=== PATIENT | male | born 1955 | race Caucasian/White ===

== ENCOUNTER 2017-07-03 09:35 | Emergency (ER) | payer MEDICARE, OTHER ==
[~2017-07-03] VITALS: Ht 177.8 cm; Wt 75.8 kg
[~2017-07-03 09:35] MED LIST: AMBIEN10 MG PO; LACTULOSE10 GM/15 M PO; LANTUS SOL100 UNIT/1 SUB-Q; LANTUS100 UNIT/1 SUB-Q; LISINOPRIL5 MG PO; LYRICA50 MG PO; MARINOL5 MG PO; MS CONTIN30 MG PO; NOVOLOG100 UNIT/1 SQ; OXYCODONE HCL15 MG PO; OXYCODONE HCL5 MG PO; OXYCONTIN15 MG PO; PHENERGAN25 MG RC; PROAIR HFA8.5 GM IH; PROVENTIL HFA6.7 GM INH; TIZANIDINE HCL2 MG PO; ZANAFLEX4 MG PO; ZITHROMAX250 MG PO; ZOFRAN ODT4 MG PO
[2017-07-03] MEDS ORDERED: PREDNISONE20 MG PO (12:14)
[2017-07-03] MEDS ORDERED: ZITHROMAX250 MG PO (12:14)
[2017-07-03] MEDS ORDERED: VENTOLIN HFA18 GM INH (12:17)
--- NOTE | 2017-07-03 17:14 | EKG ---
[facility] [address] [place] [address] Signed Sinus tachycardia Otherwise normal ECG No previous ECGs available Confirmed by DOUGLAS GRISSOM MD ([id number]) on 07/03/2017 5:14:33 PM Electronically Signed By: DOUGLAS GRISSOM MD 07/03/17 1714 PATIENT NAME: ISABELLE ALEMAN Electrocardiogram DATE OF : 55 PHYSICIAN: DOUGLAS GRISSOM MD REPORT #: [id number] REPORT IS CONFIDENTIAL AND NOT TO BE RELEASED WITHOUT AUTHORIZATION
== END 2017-07-03 12:40 | disposition home or self-care (01) ==
LOC: ED 09:35
DX: J45.901 Unspecified asthma with (acute) exacerbation (principal); J20.9 Acute bronchitis, unspecified; E11.9 Type 2 diabetes mellitus without complications; F17.200 Nicotine dependence, unspecified, uncomplicated; Z88.0 Allergy status to penicillin; Z88.1 Allergy status to other antibiotic agents; Z88.6 Allergy status to analgesic agent; Z79.4 Long term (current) use of insulin; Z79.899 Other long term (current) drug therapy
CPT/HCPCS: 71046; 80053; 84484; 85025; 93005; 93010; 94640; 99284; J7512

== ENCOUNTER 2017-07-06 12:24 | Emergency (ER) | payer MEDICARE, OTHER ==
[~2017-07-06] VITALS: Ht 177.8 cm; Wt 75.8 kg
[~2017-07-06 12:24] MED LIST changes: +PREDNISONE20 MG PO; +VENTOLIN HFA18 GM INH
[2017-07-06] MEDS ORDERED: KEFLEX500 MG PO (15:46)
== END 2017-07-06 16:12 | disposition home or self-care (01) ==
LOC: ED 12:24
DX: S90.852A Superficial foreign body, left foot, initial encounter (principal); E11.9 Type 2 diabetes mellitus without complications; Z88.0 Allergy status to penicillin; Z88.1 Allergy status to other antibiotic agents; Z88.6 Allergy status to analgesic agent; Z79.4 Long term (current) use of insulin; Z79.899 Other long term (current) drug therapy; W45.8XXA Other foreign body or object entering through skin, initial encounter
CPT/HCPCS: 99283

== ENCOUNTER 2019-01-10 11:12 | Emergency (ER) | payer MEDICARE, OTHER ==
[~2019-01-10] VITALS: Ht 177.8 cm; Wt 75.8 kg
--- OUTSIDE RECORDS SUMMARY | ~2019-01-10 | XMS | Encounter Summary ---
Demographics + + + | Address | [address] [address] | | | [place] [address] | + + + | Home Phone | | + + + | Preferred Language | Unknown | + + + | Marital Status | | + + + | Holiness Affiliation | 1009 | + + + | Race | Unknown | + + + | Ethnic Group | Unknown | + + + Author + + + | Author | [facility] | | | and [place] | + + + | Organization | [facility] | | | and [place] | + + + | Address | Unknown | + + + | Phone | Unavailable | + + + Support + + + + + | Name | Relationship | Address | Phone | + + + + + | Carmen Capone | ECON | Unknown | | + + + + + | Raulito Del Rosario | ECON | [place] | | | | | [address] | | + + + + + | Oxana Cortez | ECON | Unknown | | + + + + + Care Team Providers + +------+ + | Care Regional Cra Name | Role | Phone | + +------+ + | Tu Hansen MD | PCP | | + +------+ + Reason for Visit + + + | Reason | Comments | + + + | Procedure | | + + + Encounter Details +--------+ + + + + | Date | Type | Department | Care Team | Description | +--------+ + + + + | 11/20/ | Telephone | [facility] | Marco A Gillespie DO | Procedure | | 2019 | | [facility] | [address] | | | | | [address] | [place] [address] | | | | | [place] | [phone] | | | | | [place], [place] | | | | | | [address] | | | | | | [phone] | | | +--------+ + + + + Social History + +-------+ +--------+------+ | Tobacco Use | Types | Packs/Day | Years | Date | | | | | Used | | + +-------+ +--------+------+ | Former Smoker | | | | | + +-------+ +--------+------+ + + | Comments: 2 cigars a day | + + + + + | Sex Assigned at | Date Recorded | | | | + + + | Not on file | | + + + + + + + | Job Start Date | Occupation | Industry | + + + + | Not on file | Not on file | Not on file | + + + + + + + + | Travel History | Travel Start | Travel End | + + + + + + | No recent travel history available. | + + documented as of this encounter Plan of Treatment Not on filedocumented as of this encounter Visit Diagnoses Not on filedocumented in this encounter"
--- OUTSIDE RECORDS SUMMARY | ~2019-01-10 | XMS | Encounter Summary ---
Demographics + + + | Address | [address] [address] | | | [place] [address] | + + + | Home Phone | | + + + | Preferred Language | Unknown | + + + | Marital Status | | + + + | Gnosticist Affiliation | 1009 | + + + | Race | Unknown | + + + | Ethnic Group | Unknown | + + + Author + + + | Author | [facility] [employer] [facility] (Historical as of | | | 11-02-18) | + + + | Organization | [facility] [employer] [facility] (Historical as of | | | 11-02-18) | + + + | Address | Unknown | + + + | Phone | Unavailable | + + + Support + + +---------+ + | Name | Relationship | Address | Phone | + + +---------+ + | Oxana Cortez | ECON | Unknown | | + + +---------+ + Care Team Providers + +------+ + | Care Press Operator [employer] Products Name | Role | Phone | + +------+ + | Tu Hansen MD | PCP | | + +------+ + Reason for Visit + + + | Reason | Comments | + + + | Follow-up | Schedule follow up after 11/01 | + + + Encounter Details +--------+ + + + + | Date | Type | Department | Care Team | Description | +--------+ + + + + | 10/16/ | Telephone | [facility] | Tu Lugo DO | Follow-up (Schedule | | 2019 | | [facility] | [address] | follow up after 11/01 | | | | [address] | [place], [place] | ) | | | | [place], [place] | [id number] | | | | | [address] | | | | | | [phone] | | | +--------+ + + + + Social History + +-------+ +--------+ + | Tobacco Use | Types | Packs/Day | Years | Date | | | | | Used | | + +-------+ +--------+ + | Former Smoker | | | 30 | Quit: 03/19/2007 | + +-------+ +--------+ + + +---+---+---+ | Smokeless Tobacco: | | | | | Former User | | | | + +---+---+---+ + + | Comments: 2 cigars a day | + + + + +---------+ + | Alcohol Use | Drinks/We | oz/Week | Comments | | | ek | | | + + +---------+ + | No | | | | + + +---------+ + + + + | Sex Assigned at | Date Recorded | | | | + + + | Not on file | | + + + as of this encounter Plan of Treatment Not on fileas of this encounter Visit Diagnoses Not on filein this encounter"
--- OUTSIDE RECORDS SUMMARY | ~2019-01-10 | XMS | Encounter Summary ---
Demographics + + + | Address | [address] [address] | | | [place] [address] | + + + | Home Phone | | + + + | Preferred Language | Unknown | + + + | Marital Status | | + + + | Gnosticist Affiliation | 1009 | + + + | Race | Unknown | + + + | Ethnic Group | Unknown | + + + Author + + + | Author | [facility] | | | and [place] | + + + | Organization | [facility] | | | and [...] | Raulito Del Rosario | ECON | [place] | | | | | [address] | | + + + + + | Oxana Cortez | ECON | Unknown | | + + + + + Care Team Providers + +------+ + | Care Control Chemist Name | Role | Phone | + +------+ + | Tu Hansen MD | PCP | | + +------+ + Encounter Details +--------+ + + + + | Date | Type | Department | Care Team | Description | +--------+ + + + + | 10/24/ | Orders Only | [facility] | Conversion | | | 2019 | | CONVERSION [address] | Transaction, | | | | | [address] | Provider Unknown | | | | | [place] | [phone] | | | | | [address] | | | | | | [phone] | | | +--------+ + + + [...]
--- OUTSIDE RECORDS SUMMARY | ~2019-01-10 | XMS | Encounter Summary ---
Demographics + + + | Address | [address] [address] | | | [place] [address] | + + + | Home Phone | | + + + | Preferred Language | Unknown | + + + | Marital Status | | + + + | Sikh Affiliation | 1009 | + + + | Race | Unknown | + + + | Ethnic Group | Unknown | + + + Author + + + | Author | [facility] (Historical as of | | | 11-02-18) | + + + | Organization | [facility] (Historical as of | | | [...] Team Providers + +------+ + | Care Configuration Management Analyst Name | Role | Phone | + +------+ + | Tu Hansen MD | PCP | | + +------+ + Reason for Visit + + + | Reason | Comments | + + + | Neck Pain | | + + + Consultation (Routine) + + + + + + + | Status | Reason | Specialty | Diagnoses / | Referred By | Referred To | | | | | Procedures | Contact | Contact | + + + + + + + | Authorized | Specialty | Pain | Diagnoses | Parish, | Motaghi, | | | Services | Management - | Cervical | DO Tu | DO Marco A | | | Required | Anesthesiolog | radiculopath | [address] | [address] | | | | y / | y | [address] | [address] | | | | Dolorology | Neuroforamin | [address] | [place], [place] | | | | | al stenosis | [place], [place] | [address] | | | | | of cervical | [address] | Phone: | | | | | spine | Phone: | [phone] | | | | | Spinal cord | [phone] | Fax: | | | | | injury at | Fax: | [phone] | | | | | C1-C4 level | [phone] | | | | | | with spinal | | | | | | | cord lesion | | | | | | | ([facility]) | | | | | | | Spinal cord | | | | | | | injury at | | | | | | | C5-C7 level | | | | | | | without | | | | | | | injury of | | | | | | | spinal bone, | | | | | | | initial | | | | | | | encounter | | | | | | | ([facility]) | | | | | | | Disability | | | | | | | of walking | | | | | | | Myelomalacia | | | | | | | of cervical | | | | | | | cord ([facility]) | | | + + + + + + + Encounter Details +--------+---------+ + + + | Date | Type | Department | Care Team | Description | +--------+---------+ + + + | 11/01/ | Office | [facility] | Marco A Gillespie DO | Spinal cord injury | | 2019 | Visit | [facility] | [address] | at C1-C4 level with | | | | MEDICINE LIZZY | [place] [address] | spinal cord lesion | | | | PAIN [address] | [phone] | (HCC) prior | | | | [place], [place] | | (Primary Dx); Spinal | | | | [address] | | cord injury at | | | | [phone] | | C5-C7 level without | | | | | | injury of spinal | | | | | | bone, initial | | | | | | encounter ([facility]); | | | | | | Cervical | | | | | | radiculopathy; Left | | | | | | arm weakness; | | | | | | History of fusion of | | | | | | cervical spine; | | | | | | Neuroforaminal | | | | | | stenosis of cervical | | | | | | spine | +--------+---------+ + + + Social History + +-------+ [...] + + + as of this encounter Last Filed Vital Signs + + + + | Vital Sign | Reading | Time Taken | + + + + | Blood Pressure | - | - | + + + + | Pulse | - | - | + + + + | Temperature | - | - | + + + + | Respiratory Rate | - | - | + + + + | Oxygen Saturation | - | - | + + + + | Inhaled Oxygen | - | - | | Concentration | | | + + + + | Weight | 75.6 kg (166 lb 9.6 | 11/01/2018 11:00 AM PDT | | | oz) | | + + + + | Height | 180.3 cm (5' 11") | 11/01/2018 11:00 AM PDT | + + + + | Body Mass Index | 23.24 | 11/01/2018 11:00 AM PDT | + + + + in this encounter Progress Notes Marco A Gillespie DO - 11/01/2018 11:55 AM PDTFormatting of this note may be different from t meagan original. [facility]: Interventional Pain Management 11/01/2018 Jim Salas 1955 Chief Complaint Patient presents with Neck Pain HISTORY OF PRESENT ILLNESS Neck Pain This is a chronic problem. The current episode started more than 1 year ago. The problem oc curs constantly. The problem has been unchanged. The pain is present in the left side. The q uality of the pain is described as aching, stabbing and shooting. The pain is at a severity of 7/10. The pain is moderate. Associated symptoms include numbness, tingling and weakness. Pertinent negatives include no chest pain, fever, headaches, photophobia or trouble swallowi ng. The treatment provided mild relief. REVIEW OF SYSTEMS Review of Systems Constitutional: Positive for activity change. Negative for appetite change, fatigue and fev er. HENT: Negative for congestion, trouble swallowing and voice change. Eyes: Negative for photophobia, discharge and visual disturbance. Respiratory: Negative for apnea, cough, shortness of breath and wheezing. Cardiovascular: Negative for chest pain, palpitations and leg swelling. Gastrointestinal: Negative for abdominal pain, diarrhea, nausea and vomiting. Endocrine: Negative for cold intolerance, heat intolerance and polyuria. Musculoskeletal: Positive for arthralgias, back pain and neck pain. Negative for gait probl em, joint swelling and neck stiffness. Skin: Negative for color change and rash. Allergic/Immunologic: Negative for environmental allergies and food allergies. Neurological: Positive for tingling, weakness and numbness. Negative for dizziness, seizure s, light-headedness and headaches. Psychiatric/Behavioral: Negative for dysphoric mood and suicidal ideas. The patient is not nervous/anxious. All other systems reviewed and are negative. Past Medical History Diagnosis Date Adverse drug reaction 08/26/2011 Anxiety Cancer (HCC) Stage 4 Liver CA from Hepatitis- finished chemo about 3 wks ago Chronic back pain Diabetes mellitus type II Falls frequently GERD (gastroesophageal reflux disease) Hepatitis C Joint pain chemo related Liver disease Neuromuscular disorder (HCC) Other chronic pain back and legs Peripheral neuropathy Past Surgical History Procedure Laterality Date CERVICAL LAMINECTOMY Bilateral 08/01/2012 Procedure: CERVICAL - DECOMPRESSION - LAMINECTOMY - POSTERIOR; Surgeon: Arnaldo Jiang MD; Location: [facility]; Service: Neurosurgery; Laterality: Bilateral; 3,4,5 w/ lateral plates (cervical 3-7 decompression and fusion with lateral mass plates) COLONOSCOPY EYE SURGERY EYE SURGERY right eye after trauma HAND SURGERY Carpal Tunnel- RH LUMBAR SPINE SURGERY lumbarectomy x3 SPINE SURGERY Allergies Allergen Reactions Codeine Anaphylaxis Erythrocin Hives Erythromycin Anaphylaxis Robaxin [Methocarbamol] Shortness of Breath Neurontin [Gabapentin] Headache migraine Prior to Admission medications Medication Sig Start Date End Date Taking? Authorizing Provider albuterol (PROVENTIL HFA;VENTOLIN HFA) 108 (90 Base) MCG/ACT inhaler INHALE 2 PUFFS PO Q 6 H PRN 07/31/18 Yes Historical Provider clobetasol (TEMOVATE) 0.05 % cream Apply 0.05 % topically 2 (two) times daily. Apply twice a day to the affected area Yes Historical Provider diclofenac (VOLTAREN) 1 % APPLY 2 GRAMS TO SKIN SPARINGLY TO POSTERIOR NECK 3 XD PRF MODERA TE PAIN 08/02/18 Yes Historical Provider hydrOXYzine (VISTARIL) 50 MG capsule Take 50 mg by mouth 3 (three) times daily as needed. Yes Historical Provider insulin aspart (NOVOLOG) 100 UNIT/ML injection Follow the sliding scale insulin regimen as instructed. 08/28/11 Yes Franky Cabrera MD insulin glargine (LANTUS) 100 UNIT/ML injection Inject 15 Units into the skin nightly. 08/27 Yes Franky Cabrera MD losartan (COZAAR) 25 MG tablet TK 1 T PO QD 10/09/18 Yes Historical Provider LYRICA 100 MG capsule TK 1 C PO 3 XD 07/25/18 Yes Historical Provider omeprazole (PRILOSEC) 40 MG capsule Take 40 mg by mouth daily. Yes Historical Provider ondansetron (ZOFRAN) 4 MG tablet TK 1 T PO BID PRN NAUSEA 07/22/18 Yes Historical Provider ondansetron (ZOFRAN-ODT) [address] 1 T ON TONGUE AND ALLOW TO DISSOL VE BID 10/09/18 Yes Historical Provider oxyCODONE (ROXICODONE) 15 MG immediate release tablet 2 times daily 07/31/18 Yes Historical Provider pregabalin (LYRICA) 25 MG capsule Take 100 mg by mouth 3 (three) times daily. Yes Histori david Provider SSD 1 % cream APPLY CREAM TOPICALLY BID 08/27/18 Yes Historical Provider tiZANidine (ZANAFLEX) 4 MG tablet TK 1 T PO 4 XD 08/22/18 Yes Historical Provider Family History Problem Relation Age of Onset Diabetes type II Father Heart attack Father Stroke Mother Diabetes Other Social History Social History Marital status: Spouse name: N/A Number of children: 5 Years of education: N/A Occupational History Not on file. Social History Main Topics Smoking status: Former Smoker Years: 30.00 Quit date: 03/19/2007 Smokeless tobacco: Former User Comment: 2 cigars a day Alcohol use No Drug use: Yes Types: Marijuana Comment: occasional cookie Sexual activity: Not on file Other Topics Concern Not on file Social History Narrative Resident of [facility], lives at home . PHYSICAL EXAM Vital Signs: Ht 1.803 m (5' 11") | Wt 75.6 kg (166 lb 9.6 oz) | BMI 23.24 kg/m Physical Exam Constitutional: He is oriented to person, place, and time. He appears well-developed and we ll-nourished. HENT: Head: Normocephalic and atraumatic. Eyes: Conjunctivae are normal. Neck: No tracheal deviation present. Cardiovascular: Normal rate and regular rhythm. Pulmonary/Chest: Effort normal. Abdomina/Gl: Soft. Bowel sounds are normal. Neurological: He is alert and oriented to person, place, and time. Skin: Skin is warm and dry. Psychiatric: He has a normal mood and affect. His behavior is normal. Judgment normal. Vitals reviewed. Back Exam Tenderness The patient is experiencing tenderness in the cervical. Other Gait: antalgic DATA No results found. PROBLEM LIST 1. Spinal cord injury at C1-C4 level with spinal cord lesion (HCC) prior 2. Spinal cord injury at C5-C7 level without injury of spinal bone, initial encounter ([facility]) 3. Cervical radiculopathy 4. Left arm weakness 5. History of fusion of cervical spine 6. Neuroforaminal stenosis of cervical spine ASSESSMENT & PLAN Mr. Salas is a 63-year-old man here complaining of cervical neck pain with radicular symp toms on the left seemed to be following the C7-C8 nerve root on the left due to foraminal na rrowing as well as what looks like a possible tear in the root. At this time, we will try t o do a one time epidural steroid injection at C7-T1 where his dysfunction is and then having him follow up in the office for reevaluation. He does agree with the plan. Denies any los s of bowel or bladder function. We do look forward to continue participating in his care. Plan, alternatives, risks and potential benefits of the procedure were explained to the pat ient in great detail. The patient understands that there is no guarantee they will get pain relief with this procedure. They also understand that if they do get pain relief that ther e is no way to know how long it will last. They also understand there is a risk to the proc edure itself which includes but are not limited to infection, abscess, hematoma, nerve damag e, paraplegia or quadriplegia, increased pain, spinal headache, stroke, and side effects fro m the medications themselves. The patient wishes to proceed. Patient is currently participating in home exercises. Primary Care Physician: Tu Hansen follow up Marco A Gillespie DO 11/01/2018 This document has been prepared with [employer] voice recognition system. The possibility of "s ound alike" manager lighting errors, and additions, or deletions may occur. If there is any que stion with respect to clarity of the message being conveyed, please contact me directly for clarification.in this encounter Plan of Treatment Not on fileas of this encounter Visit Diagnoses + + | Diagnosis | + + | Spinal cord injury at C1-C4 level with spinal cord lesion (HCC) prior - Primary | + + | Spinal cord injury at C5-C7 level without injury of spinal bone, initial encounter | | (HCC) | + + | Cervical radiculopathy | + + | Brachial neuritis or radiculitis nos | + + | Left arm weakness | + + | Other musculoskeletal symptoms referable to limbs | + + | History of fusion of cervical spine | + + | Arthrodesis status | + + | Neuroforaminal stenosis of cervical spine | + +
--- OUTSIDE RECORDS SUMMARY | ~2019-01-10 | XMS | Encounter Summary ---
Demographics + + + | Address | [address] [address] | | | [place] [address] | + + + | Home Phone | | + + + | Preferred Language | Unknown | + + + | Marital Status | | + + + | Catholic Affiliation | 1009 | + + + | Race | Unknown | + + + | Ethnic Group | Unknown | + + + Author + + + | Author | [facility] | | | and [place] | + + + | Organization | [facility] | | | and [...] [place] | | | | | [address] | | + + + + + | Oxana Cortez | ECON | Unknown | | + + + + + Care Team Providers + +------+ + | Care Puller Over Name | Role | Phone | + [...] Provider Unknown | | | | | [place] | [phone] | | | | | [phone] | | | | | | [phone] | | | +--------+ + + + [...]
--- OUTSIDE RECORDS SUMMARY | ~2019-01-10 | XMS | Encounter Summary ---
Demographics + + + | Address | [address] [address] | | | [place] [address] | + + + | Home Phone | | + + + | Preferred Language | Unknown | + + + | Marital Status | | + + + | Bahai Affiliation | 1009 | + + + | Race | Unknown | + + + | Ethnic Group | Unknown | + + + Author + + + | Author | [facility] [employer] (Historical as of | | | 11-02-18) | + + + | Organization | [facility] [employer] (Historical as of | | [...] Team Providers + +------+ + | Care Desulphuring Operator Name | Role | Phone | + [...] + | 10/16/ | Telephone | [facility] | Tu Lugo DO | Follow-up (Schedule | | 2019 | | [facility] | [address] | follow up after 11/01 | | | | [address] | [place], [place] | ) | | | | [place], [place] | [id number] | | | | | [address] | | | | | | [phone] | | | +--------+ + + + [...]
--- OUTSIDE RECORDS SUMMARY | ~2019-01-10 | XMS | Clinical Summary ---
Demographics + + + | Address | [address] [address] | | | [place] [address] | + + + | Home Phone | | + + + | Preferred Language | Unknown | + + + | Marital Status | | + + + | Voodoo Affiliation | 1009 | + + + | Race | Unknown | + + + | Ethnic Group | Unknown | + + + Author + + + | Author | [facility] (Historical as of | | | 11-02-18) | + + + | Organization | [facility] (Historical as of | | | [...] Team Providers + +------+ + | Care Glass Forming Engineer Name | Role | Phone | + +------+ + | Tu Hansen MD | PP | | + +------+ + Allergies + + + + + + | Active Allergy | Reactions | Severity | Noted | Comments | | | | | Date | | + + + + + + | Codeine | Anaphylaxis | High | 08/27/19 | | | | | | 12 | | + + + + + + | Erythrocin | Hives | High | 09/10/19 | | | | | | 11 | | + + + + + + | Erythromycin | Anaphylaxis | High | 09/04/19 | | | | | | 19 | | + + + + + + | Gabapentin | Headache | Medium | 06/20/19 | migraine | | | | | 12 | | + + + + + + | Methocarbamol | Shortness of Breath | High | 09/10/19 | | | | | | 11 | | + + + + + + Current Medications + + +---------+---------+------+------+-------+ | Prescription | Sig. | Disp. | Refills | Star | End | Statu | | | | | | t | Date | s | | | | | | Date | | | + + +---------+---------+------+------+-------+ | pregabalin | Take 100 mg by mouth | | | | | Activ | | (LYRICA) 25 MG | 3 (three) times | | | | | e | | capsule | daily. | | | | | | + + +---------+---------+------+------+-------+ | insulin glargine | Inject 15 Units into | 10 mL | 1 | 06/1 | | Activ | | (LANTUS) 100 UNIT/ML | the skin nightly. | | | /20 | | e | | injection | | | | 12 | | | + + +---------+---------+------+------+-------+ | insulin aspart | Follow the sliding | 10 mL | 0 | 06/1 | | Activ | | (NOVOLOG) 100 | scale insulin | | | 1/20 | | e | | UNIT/ML injection | regimen as | | | 12 | | | | | instructed. | | | | | | + + +---------+---------+------+------+-------+ | hydrOXYzine | Take 50 mg by mouth | | | | | Activ | | (VISTARIL) 50 MG | 3 (three) times | | | | | e | | capsule | daily as needed. | | | | | | + + +---------+---------+------+------+-------+ | omeprazole | Take 40 mg by mouth | | | | | Activ | | (PRILOSEC) 40 MG | daily. | | | | | e | | capsule | | | | | | | + + +---------+---------+------+------+-------+ | clobetasol | Apply 0.05 % | | | | | Activ | | (TEMOVATE) 0.05 % | topically 2 (two) | | | | | e | | cream | times daily. Apply | | | | | | | | twice a day to the | | | | | | | | affected area | | | | | | + + +---------+---------+------+------+-------+ | albuterol | INHALE 2 PUFFS PO Q | | 3 | 05/1 | | Activ | | (PROVENTIL | 6 H PRN | | | 08/05 | | e | | HFA;VENTOLIN HFA) | | | | 19 | | | | 108 (90 Base) | | | | | | | | MCG/ACT inhaler | | | | | | | + + +---------+---------+------+------+-------+ | diclofenac | APPLY 2 GRAMS TO | | 1 | 05/1 | | Activ | | (VOLTAREN) 1 % | SKIN SPARINGLY TO | | | 20 | | e | | | POSTERIOR NECK 3 XD | | | 19 | | | | | PRF MODERATE PAIN | | | | | | + + +---------+---------+------+------+-------+ | ondansetron | TK 1 T PO BID PRN | | 0 | 05/0 | | Activ | | (ZOFRAN) 4 MG tablet | NAUSEA | | | 20 | | e | | | | | | 19 | | | + + +---------+---------+------+------+-------+ | oxyCODONE | 2 times daily | | 0 | 05/1 | | Activ | | (ROXICODONE) 15 MG | | | | 5/20 | | e | | immediate release | | | | 19 | | | | tablet | | | | | | | + + +---------+---------+------+------+-------+ | LYRICA 100 MG | TK 1 C PO 3 XD | | 0 | 05/0 | | Activ | | capsule | | | | 20 | | e | | | | | | 19 | | | + + +---------+---------+------+------+-------+ | SSD 1 % cream | APPLY CREAM | | 2 | 06/1 | | Activ | | | TOPICALLY BID | | | /20 | | e | | | | | | 19 | | | + + +---------+---------+------+------+-------+ | tiZANidine | TK 1 T PO 4 XD | | 1 | 06/0 | | Activ | | (ZANAFLEX) 4 MG | | | | 6/20 | | e | | tablet | | | | 19 | | | + + +---------+---------+------+------+-------+ | losartan (COZAAR) | TK 1 T PO QD | | 5 | 07/2 | | Activ | | 25 MG tablet | | | | 4/20 | | e | | | | | | 19 | | | + + +---------+---------+------+------+-------+ | ondansetron | PLACE 1 T ON TONGUE | | 5 | 07/2 | | Activ | | (ZOFRAN-ODT) 8 MG | AND ALLOW TO | | | 4/20 | | e | | disintegrating | DISSOLVE BID | | | 19 | | | | tablet | | | | | | | + + +---------+---------+------+------+-------+ Active Problems + + + | Problem | Noted Date | + + + | Spinal cord injury at C1-C4 level with spinal cord lesion ([facility]) | 10/02/2018 | | prior | | + + + | Spinal cord injury at C5-C7 level without injury of spinal bone | 10/02/2018 | | ([facility]) | | + + + | Disability of walking | 10/02/2018 | + + + | Myelomalacia of cervical cord ([facility]) | 10/02/2018 | + + + | Degeneration of intervertebral disc of cervical region | 09/03/2018 | + + + | Cervical radiculopathy | 09/03/2018 | + + + | Left arm weakness | 09/03/2018 | + + + | History of fusion of cervical spine | 09/03/2018 | + + + | Neuroforaminal stenosis of cervical spine | 09/03/2018 | + + + | Allergic drug rash due to anti-infective agent | 08/26/2011 | + + + | Acute pain | 08/26/2011 | + + + | Diabetes mellitus (HCC) | 08/26/2011 | + + + | Chronic hepatitis, unspecified | 08/26/2011 | + + + | Abnormal LFTs (liver function tests) | 08/26/2011 | + + + | Elevated blood pressure reading without diagnosis of hypertension | 08/26/2011 | + + + | GERD (gastroesophageal reflux disease) | 08/26/2011 | + + + | Hyperosmolality and/or hypernatremia | 08/26/2011 | + + + | Peripheral neuropathy | 08/26/2011 | + + + | Chronic LBP | 08/26/2011 | + + + | Falls | 08/26/2011 | + + + | Arboleda's esophagus | 08/26/2011 | + + + | Hepatitis C, chronic | 08/26/2011 | + + + | Adverse drug reaction | 08/26/2011 | + + + Encounters +--------+ + + + + | Date | Type | Specialty | Care Team | Description | +--------+ + + + + | 11/01/ | Office | | Marco A Gillespie DO | Spinal cord injury | | 2019 | Visit | | | at C1-C4 level with | | | | | | spinal cord lesion | | | | | | (HCC) prior | | | | | | (Primary Dx); Spinal | | | | | | cord injury at | | | | | | C5-C7 level without | | | | | | injury of spinal | | | | | | bone, initial | | | | | | encounter (HCC); | | | | | | Cervical [...] | | | | | spine | +--------+ + + + + | 10/24/ | Orders Only | | Kenia Ann, | | | 2018 | | | REPAIR DEPARTMENT SUPERVISOR | | +--------+ + + + + | 10/16/ | Telephone | | Tu Lugo DO | Referral (outgoing) | | 2018 | | | | | +--------+ + + + + | 10/16/ | Telephone | | Tu Lugo DO | Follow-up (Schedule | | 2018 | | | | follow up after 11/01 | | | | | | ) | +--------+ + + + + from Last 3 Months Family History + + +------+ + | Medical History | Relation | Name | Comments | + + +------+ + | Diabetes type II | Father | | | + + +------+ + | Heart attack | Father | | | + + +------+ + | Stroke | Mother | | | + + +------+ + | Diabetes | Other | | | + + +------+ + + +------+ + + | Relation | Name | Status | Comments | + +------+ + + | Father | | | at the age 64 with heart attack | + +------+ + + | Mother | | | at the age of 34 from complications of | | | | | polio | + +------+ + + | Other | | | | + +------+ + + Social History + +-------+ +--------+ [...] on file | | + + + Last Filed Vital Signs + + + + | Vital Sign | Reading | Time Taken | + + + + | Blood Pressure | 144/73 | 10/02/2018 11:20 AM PDT | + + + + | Pulse | 62 | 10/02/2018 11:20 AM PDT | + + + + | Temperature | 36.5 C (97.7 F) | 08/02/2012 11:37 AM PDT | + + + + | Respiratory Rate | 16 | 08/02/2012 11:37 AM PDT | + + + + | Oxygen Saturation | 98% | 08/02/2012 11:37 AM PDT | + + + + | Inhaled [...] AM PDT | + + + + Plan of Treatment + + + + + | Health Maintenance | Due Date | Last Done | Comments | + + + + + | Diabetic Eye Exam | | | | | | 6 | | | + + + + + | Diabetic Foot Exam | | | | | | 6 | | | + + + + + | Microalbumin | | | | | Screening | 6 | | | + + + + + | Vaccine: | | | | | Dtap/Tdap/Td (1 - | 5 | | | | Tdap) | | | | + + + + + | Vaccine: | | | | | Pneumococcal 19-64 | 5 | | | | (PPSV23 only) Medium | | | | | Risk (1 of 1 - | | | | | PPSV23) | | | | + + + + + | Colon Cancer | | | | | Screening | 6 | | | | (Colonoscopy) | | | | + + + + + | Vaccine: Zoster (1 | | | | | of 2) | 6 | | | + + + + + | Hemoglobin A1c | | 08/27/2011 | | | | 2 | | | + + + + + | Statin Therapy | | | | | (optimal intensity) | 9 | | | + + + + + | Vaccine: Influenza | | | | | (#1) | 9 | | | + + + + + Implants + +------+------+ +--------+--------+--------+ | Implanted | Type | Area | Manufacture | Device | Expira | Model | | | | | r | | tion | / | | | | | | Identi | Date | Serial | | | | | | fier | | / Lot | + +------+------+ +--------+--------+--------+ | Allograft Putty Freeze Dried | | | | | 04/15/ | [id number] | | Demineralized Bone Matrix Dbx | | | | | 2014 | | | 5ml - | | | | | | /[id number] | | [id number]: | | | | | | [id number] | | Qty: 1 on 08/01/2012 by | | | | | | [id number] | | Arnaldo Jiang MD | | | | | | 1 / | + +------+------+ +--------+--------+--------+ | Screw Synapse Cancellous Ti | | | | | | 04.614 | | 3.5x14mm - | | | | | | .014 | | [id number]: Qty: 8 on | | | | | | /[id number] | | 08/01/2012 by Arnaldo Jiang, | | | | | | 014 / | | | | | | | | | + +------+------+ +--------+--------+--------+ | Screw Synapse Locking For Loco | | | | | | 04.614 | | Spinal Hard Ti 355mm - | | | | | | .508 | | [id number]: Qty: 8 on | | | | | | /[id number] | | 08/01/2012 by Arnaldo Jiang, | | | | | | 508 / | | MD | | | | | | | + +------+------+ +--------+--------+--------+ | Loco Hard Ti 3.5x80mm - | | | | | | 498.12 | | [id number]: Qty: 2 on | | | | | | 0 | | 08/01/2012 by Arnaldo Jiang, | | | | | | /[id number] | | MD | | | | | | 0 / | + +------+------+ +--------+--------+--------+ Results Not on filefrom Last 3 Months Insurance + +--------+ +------+-------+ + | Payer | Benefi | Subscriber | Type | Phone | Address | | | t Plan | ID | | | | | | / | | | | | | | Group | | | | | + +--------+ +------+-------+ + | MEDICARE | MEDICA | [id number] | | | [address] | | | RE | | | | [place] [address] | | | IP-OP | | | | | + +--------+ +------+-------+ + | MEDICAID | [place] | [id number] | | | [address] | | | N | | | | [place], [place] | | | [place] | | | | [address] | | | PRODUCT GRADER | | | | | + +--------+ +------+-------+ + + +--------+ +--------+ + + | Guarantor Name | Accoun | Relation to | Date | Phone | Billing Address | | | t Type | Patient | of | | | | | | | | | | + +--------+ +--------+ + + | JIM SALAS | Person | Self | [birth year] | Home: | [address] [place] [address] | | [place] | al/Romeo | | 6 [phone] [address] [place], | | | carmen | | | [phone] | [place] [address] | + +--------+ +--------+ + +
--- OUTSIDE RECORDS SUMMARY | ~2019-01-10 | XMS | Encounter Summary ---
Demographics + + + | Address | [address] [address] | | | [place] [address] | + + + | Home Phone | | + + + | Preferred Language | Unknown | + + + | Marital Status | | + + + | Episcopalian Affiliation | 1009 | + + + | Race | Unknown | + + + | Ethnic Group | Unknown | + + + Author + + + | Author | [facility] (Historical as of | | | 11-02-18) | + + + | Organization | [facility] (Historical as of | | [...] Team Providers + +------+ + | Care Applied Psychology Teacher Name | Role | Phone | + [...] Dolorology | Neuroforamin | KETAN B | [place], [place] | | | | | al stenosis | [place], [place] | [address] | | | | | of cervical | [address] | Phone: | | | | | spine | Phone: | [phone] | | | | | Spinal cord | [phone] | Fax: | | | | | injury at | Fax: | [phone] | | | | | C1-C4 level | [phone] | | | | | | with spinal | | | | | | | cord lesion | | | | | | | ([facility]) | | | | | | | [...] | | | | | | | ([facility]) | | | | | | | Disability | | | | | | | of walking | | | | | | | Myelomalacia | | | | | | | of cervical | | | | | | | cord ([facility]) | | | + + + + + + + Encounter Details +--------+---------+ + + + | Date | Type | Department | Care Team | Description | +--------+---------+ + + + | 11/01/ | Office | [facility] | Marco A Gillespie DO | Spinal cord injury | | 2019 | Visit | [facility] | [address] | at C1-C4 level with | | | | MEDICINE [place]ZZ[place] | [place] [address] | spinal cord lesion | | | | PAIN [address] | [phone] | (HCC) prior | | | | [place], [place] | | (Primary Dx); Spinal | | | | [address] | | cord injury at | | | | [phone] | | C5-C7 level without | | | | | | injury of spinal | | | | | | bone, initial | | | | | | encounter ([facility]); | | | | | | Cervical [...] may be different from t meagan original. 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 PHYSICAL EXAM Vital [...] without injury of spinal bone, initial encounter ([facility]) 3. Cervical radiculopathy 4. Left arm weakness [...] 11/01/2018 This document has been prepared with Jogg voice recognition system. The possibility of "s ound alike" wig comber errors, and additions, or deletions may occur. [...]
--- OUTSIDE RECORDS SUMMARY | ~2019-01-10 | XMS | Encounter Summary ---
Demographics + + + | Address | [address] [address] | | | [place] [address] | + + + | Home Phone | | + + + | Preferred Language | Unknown | + + + | Marital Status | | + + + | Restoration Affiliation | 1009 | + + + | Race | Unknown | + + + | Ethnic Group | Unknown | + + + Author + + + | Author | [facility] | | | and [place] | + + + | Organization | [facility] | | | [...] [place] | | | | | [address] | | + + + + + | Oxana Cortez | ECON | Unknown | | + + + + + Care Team Providers + +------+ + | Care Monotype Machinist Name | Role | Phone | + [...] | Procedure | | 2019 | | [facility] | [address] [facility] | | | | | [address] | [place] [address] | | | | | [address] | [phone] | | | | | [place], [place] | | | | | | [address] | | | | | | [phone] | | | +--------+ + + + [...]
--- OUTSIDE RECORDS SUMMARY | ~2019-01-10 | XMS | Clinical Summary ---
Demographics + + + | Address | [address] [address] | | | [place] [address] | + + + | Home Phone | | + + + | Preferred Language | Unknown | + + + | Marital Status | | + + + | Orthodox Affiliation | 1009 | + + + | Race | Unknown | + + + | Ethnic Group | Unknown | + + + Author + + + | Author | [facility] | | | and [place] | + + + | Organization | [facility] | | | [...] [place] | | | | | [address] | | + + + + + | Oxana Cortez | ECON | Unknown | | + + + + + Care Team Providers + +------+ + | Care Guitar Teacher Name | Role | Phone | + +------+ + | Tu Hansen MD | PCP | | + +------+ + Allergies + [...] | Hives | High | 09/10/19 | Hives | | | | | 11 | [...] + + + | Methocarbamol | Shortness Of Breath | High | 09/10/19 | Sob | | | | | 11 | | + + + + + + Medications + + + +---------+------+------+-------+ | Medication | Sig | Dispensed | Refills | Star | End | Statu | | | | | | t | Date | s | | | | | | Date | | | + + + +---------+------+------+-------+ | pregabalin | Take 100 mg by mouth | | 0 | 06/0 | | Activ | | (LYRICA) 25 mg | 3 (three) times | | | /20 | | e | | capsule | daily. | | | 12 | | | + + + +---------+------+------+-------+ | insulin glargine | Inject 15 Units into | 10 mL | 1 | 06/1 | | Activ | | (LANTUS) 100 | the skin nightly. | | | 1/20 | | e | | units/mL injection | | | | 12 | | | | (vial) | | | | | | | + + + +---------+------+------+-------+ | insulin aspart | Follow the sliding | 10 mL | 0 | 06/1 | | Activ | | (NOVOLOG) 100 | scale insulin | | | 1/20 | | e | | units/mL injection | regimen as | | | 12 | | | | | instructed. | | | | | | + + + +---------+------+------+-------+ | hydrOXYzine | Take 50 mg by mouth | | 0 | 07/1 | | Activ | | (VISTARIL) 50 MG | 3 (three) times | | | 9/20 | | e | | capsule | daily as needed. | | | 12 | | | + + + +---------+------+------+-------+ | omeprazole | Take 40 mg by mouth | | 0 | 07/1 | | Activ | | (PRILOSEC) 40 MG | daily. | | | 12/06 | | e | | capsule | | | | 12 | | | + + + +---------+------+------+-------+ | clobetasol | Apply 0.05 % | | 0 | / | | Activ | | (TEMOVATE) 0.05% | topically 2 (two) | | | 12/06 | | e | | cream | times daily. Apply | | | 12 | | | | | twice a day to the | | | | | | | | affected area | | | | | | + + + +---------+------+------+-------+ | albuterol 90 | INHALE 2 PUFFS PO Q | | 3 | 07/17 | | Activ | | mcg/puff inhaler | 6 H PRN | | | /20 | | e | | | | | | 19 | | | + + + +---------+------+------+-------+ | diclofenac | APPLY 2 GRAMS TO | | 1 | 05/1 | | Activ | | (VOLTAREN) 1% GEL | SKIN SPARINGLY TO | | | /20 | | e | | | POSTERIOR NECK 3 XD | | | 19 | | | | | PRF MODERATE PAIN | | | | | | + + + +---------+------+------+-------+ | ondansetron | TK 1 T PO BID PRN | | 0 | 05/0 | | Activ | | (ZOFRAN) 4 mg tablet | NAUSEA | | | /20 | | e | | | | | | 19 | | | + + + +---------+------+------+-------+ | oxyCODONE | 2 times daily | | 0 | 05/1 | | Activ | | (ROXICODONE) 15 mg | | | | /20 | | e | | immediate release | | | | 19 | | | | tablet | | | | | | | + + + +---------+------+------+-------+ | LYRICA 100 MG | TK 1 C PO 3 XD | | 0 | 05/0 | | Activ | | capsule | | | | /20 | | e | | | | | | 19 | | | + + + +---------+------+------+-------+ | SSD 1 % cream | APPLY CREAM | | 2 | 06/1 | | Activ | | | TOPICALLY BID | | | 1/20 | | e | | | | | | 19 | | | + + + +---------+------+------+-------+ | tiZANidine | TK 1 T PO 4 XD | | 1 | 06/0 | | Activ | | (ZANAFLEX) 4 mg | | | | 6/20 | | e | | tablet | | | | 19 | | | + + + +---------+------+------+-------+ | losartan (COZAAR) | TK 1 T PO QD | | 5 | 07/2 | | Activ | | 25 mg tablet | | | | 4/20 | | e | | | | | | 19 | | | + + + +---------+------+------+-------+ | ondansetron | PLACE 1 T ON TONGUE | | 5 | 07/2 | | Activ | | (ZOFRAN ODT) 8 mg | AND ALLOW TO | | | 4/20 | | e | | disintegrating | DISSOLVE BID | | | 19 | | | | tablet | | | | | | | + + + +---------+------+------+-------+ Active Problems + + + | Problem | Noted Date | + + + | Spinal cord injury at C1-C4 level with spinal cord lesion (HCC) | 10/02/2018 | | prior | | + + + | Spinal cord injury at C5-C7 level without injury of spinal bone | 10/02/2018 | + + + | Disability of walking | 10/02/2018 | + + + | Myelomalacia of cervical cord | 10/02/2018 | + + + | [...] | + + + | Diabetes mellitus | 08/26/2011 | + + + | [...] + + | 11/20/ | Telephone | Pain Medicine | Marco A Gillespie DO | Procedure | | 2018 | | | | | +--------+ + + + + | 10/24/ | Orders Only | | Conversion | | | 2018 | | | Transaction, | | | | | | Provider Unknown | | +--------+ + + + + from Last 3 Months Family History + + +------+ + | Medical History | Relation | Name | Comments | + + +------+ + | Diabetes, NIDDM | Father | | | + + [...] attack | + +------+ + + | Father | | | | + +------+ + + | Mother | | | at the age of 34 from complications of | | | | | polio | + +------+ + + | Mother | | | | + +------+ + + | Other | | | | + +------+ + + | Other | | | | + +------+ + + Social History + +-------+ +--------+------+ [...] recent travel history available. | + + Last Filed Vital Signs + + + + | Vital Sign | Reading | Time Taken | + + + + | Blood Pressure | 144/73 | 10/02/20181126 PDT | + + + + | Pulse | 62 | 10/02/20181126 PDT | + + + + | [...] | 75.6 kg (166 lb 9.6 | 11/01/20181102 PDT | | | oz) | | + + + + | Height | 180.3 cm (5' 11") | 11/01/20181102 PDT | + + + + | Body Mass Index | 23.24 | 11/01/20181102 PDT | + + + + Plan of Treatment + + + + + | Health Maintenance | Due Date | Last Done | Comments | + + + + + | Diabetic Eye Exam | | | | | | 4 | | | + + + + + | Diabetic Foot Exam | | | | | | 4 | | | + + + + + | Hemoglobin A1c | | | | | Screening | 4 | | | + + + + + | Vaccine: | | | | | Dtap/Tdap/Td (1 - | 5 | | | | Tdap) | | | | + + + + + | Vaccine: | | | | | Pneumococcal 19-64 | 5 | | | | (PPSV23 only) Medium | | | | | Risk (1 of - | | | | | PPSV23) | | | | + + + + + | Colorectal Cancer | | | | | Screening | 6 | | | | (Colonoscopy) | | | | + + + + + | Vaccine: Zoster (1 | | | | | of 2) | 6 | | | + + + + + | Adult Annual | | | | | Wellness Visit | 9 | | | + + + + + | Statin Therapy | | | | | (optimal intensity) | 9 | | | + + + + + | Vaccine: Influenza | | | | | (#1) | 9 | | | + + + + + | Hepatitis C | Completed | 08/26/2011, 08/26/2011, | | | Screening | | 12/06/2010, Additional history | | | | | exists | | + + + + + Implants + +------+------+ +--------+--------+--------+ | Implanted | Type | Area | Manufacture | Device | Shelf | Model | | | | | r | | Expira | / | | | | | | Identi | tion | Serial | | | | | | fier | Date | / Lot | + +------+------+ +--------+--------+--------+ | Allograft Putty Freeze Dried | | | | | 04/15/ | [id number] | | Demineralized Bone Matrix Dbx | | | | | 2014 | | | 5ml - | | | | | | /[id number] | | [id number]: | | | | | | [id number] | | Qty: 1 on 08/01/2012 | | | | | | [id number] | | | | | | | | 1 / | + +------+------+ +--------+--------+--------+ | Screw Synapse Cancellous Ti | | | | | | 04.614 | | 3.5x14mm - | | | | | | .014 | | [id number]: Qty: 8 on | | | | | | /[id number] | | 08/01/2012 | | | | | | 014 / | + +------+------+ +--------+--------+--------+ | Screw Synapse Locking For Loco | | | | | | 04.614 | | Spinal Hard Ti 355mm - | | | | | | .508 | | [id number]: Qty: 8 on | | | | | | /[id number] | | 08/01/2012 | | | | | | 508 / | + +------+------+ +--------+--------+--------+ | Loco Hard Ti 3.5x80mm - | | | | | | 498.12 | | [id number]: Qty: 2 on | | | | | | 0 | | 08/01/2012 | | | | | | /[id number] | | | | | | | | 0 / | + +------+------+ +--------+--------+--------+ Results Not on filefrom Last 3 Months Insurance + +--------+ +--------+ +---------+--------+ | Payer | Benefi | Subscriber | Effect | Phone | Address | Type | | | t Plan | ID | len | | | | | | / | | Dates | | | | | | Group | | | | | | + +--------+ +--------+ +---------+--------+ | MEDICARE | MEDICA | [id number] | | [phone] | | Medica | | | RE | | [phone]-Pr | 5 | | re | | | PART A | | esent | | | | | | AND B | | | | | | + +--------+ +--------+ +---------+--------+ | [employer] | MODA | [id number] | 11/19/19 | [phone] | | Medica | | MEDICAID HMO | HEALTH | | 19-Pre | 1 | | id | | | MDCD | | sent | | | | | | [place]MO [place] | | | | | | + +--------+ +--------+ +---------+--------+ + +--------+ +--------+ + + | Guarantor Name | Accoun | Relation to | Date | Phone | Billing Address | | | t Type | Patient | of | | | | | | | | | | + +--------+ +--------+ + + | Jim Salas | Person | Self [birth year] | [address] | | [place] | al/Fam | | 1956 | [phone] | [address], | | | [place] | | | [address] (Home) | [place] [address] | | | | | | [phone] | | | | | | | 2 (Work) | | + +--------+ +--------+ + + | Jim Salas | Person | Self [birth year] | [address] | | [place] | al/Fam | | 1956 | [phone] | [address], | | | [place] | | | [address] (Home) | [place] [address] | + +--------+ +--------+ + + Advance Directives Patient has advance care planning documents on file. For more information, please contact:[facility] [place] [address]
--- OUTSIDE RECORDS SUMMARY | ~2019-01-10 | XMS | Clinical Summary ---
Demographics + + + | Address | [address] [address] | | | [place] [address] | + + + | Home Phone | | + + + | Preferred Language | Unknown | + + + | Marital Status | | + + + | Uatsdin Affiliation | 1009 | + + + | Race | Unknown | + + + | Ethnic Group | Unknown | + + + Author + + + | Author | [facility] | | | and [place] | + + + | Organization | [facility] | | | [...] [place] | | | | | [address] | | + + + + + | Oxana Cortez | ECON | Unknown | | + + + + + Care Team Providers + +------+ + | Care Flat Sorter Processor Name | Role | Phone | + [...] | | | | | 04/15/ | [id number] | | Demineralized Bone Matrix Dbx | | | | | 2014 | | | 5ml - | | | | | | /[id number] | | [id number]: | | | | | | [id number] | | Qty: 1 on 08/01/2012 | | | | | | [id number] | | | | | | | | 1 / | + +------+------+ +--------+--------+--------+ | Screw Synapse Cancellous Ti | | | | | | 04.614 | | 3.5x14mm - | | | | | | .014 | | [id number]: Qty: 8 on | | | | | | /[id number] | | 08/01/2012 | | | | | | 014 / | + +------+------+ +--------+--------+--------+ | Screw Synapse Locking For Loco | | | | | | 04.614 | | Spinal Hard Ti 355mm - | | | | | | .508 | | [id number]: Qty: 8 on | | | | | | /[id number] | | 08/01/2012 | | | | | | 508 / | + +------+------+ +--------+--------+--------+ | Loco Hard Ti 3.5x80mm - | | | | | | 498.12 | | [id number]: Qty: 2 on | | | | | | 0 | | 08/01/2012 | | | | | | /[id number] | | | | | | | [...] +--------+ +---------+--------+ | MEDICARE | MEDICA | [id number] | | [phone] | | Medica | | | RE | | [phone] | [phone] | | re | | | PART A | | esent | | | | | | AND B | | | | | | + +--------+ +--------+ +---------+--------+ | [employer] | [employer] | [id number] | 11/19/19 | [phone] | | Medica [...] | | | 3 (Home) | [place] [address] | | | | | | [phone] | | | | | | 2 (Work) | | + +--------+ +--------+ + + | Jim Salas | Person | Self | [birth year] | [address] | | [place] | al/Fam | | 1956 | [phone] | [address] [place], | | | [place] | | | 3 (Home) | [place] [address] | + +--------+ +--------+ + + Advance Directives Patient has advance care planning documents on file. For more information, please contact:[facility] [place] [address]
--- OUTSIDE RECORDS SUMMARY | ~2019-01-10 | XMS | Clinical Summary ---
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 level with spinal cord lesion ([facility]) | 10/02/2018 | | prior | | + + + | Spinal cord injury at C5-C7 level without injury of spinal bone | 10/02/2018 | | ([facility]) | | + + + | Disability of walking | 10/02/2018 | + + + | Myelomalacia of cervical cord ([facility]) | 10/02/2018 | + + + | [...] | | | 2018 | | | CASING BLOWER | | +--------+ + + + + [...] | | | | | 04/15/ | [id number] | | Demineralized Bone Matrix Dbx | | | | | 2014 | | | 5ml - | | | | | | /44134 | | [id number]: | | | | | | [id number] | | Qty: 1 on 08/01/2012 by | | | | | | [id number] | | Arnaldo Jiang MD | | | | | | 1 / | + +------+------+ +--------+--------+--------+ | Screw Synapse Cancellous Ti | | | | | | 04.614 | | 3.5x14mm - | | | | | | .014 | | [id number]: Qty: 8 on | | | | | | /02933 | | 08/01/2012 by Arnaldo Jiang, | | | | | | 014 / | | | | | | | | | + +------+------+ +--------+--------+--------+ | Screw Synapse Locking For Loco | | | | | | 04.614 | | Spinal Hard Ti 355mm - | | | | | | .508 | | [id number]: Qty: 8 on | | | | | | /[id number] | | 08/01/2012 by Arnaldo Jiang, | | | | | | 508 / | | MD | | | | | | | + +------+------+ +--------+--------+--------+ | Loco Hard Ti 3.5x80mm - | | | | | | 498.12 | | [id number]: Qty: 2 on | | | | | | 0 | | 08/01/2012 by Arnaldo Jiang, | | | | | | /[id number] | | MD | | | | [...] +------+-------+ + | MEDICARE | MEDICA | [id number] | | | [address] | | | RE | | | | [place] [address] | | | IP-OP | | | | | + +--------+ +------+-------+ + | MEDICAID | [place] | [id number] | | | [address] | | | N | | | | [place], [place] | | | [place] | | | | [address] | | | NIGHTCLUB MANAGER | | | | | + +--------+ [...] | Self | [birth year] | Home: | [address] [place] [address] | | [place] | al/[place] | | [phone] [address] [place], | | | [place] | | | [phone] | [place] [address] | + +--------+ +--------+ + +
--- OUTSIDE RECORDS SUMMARY | ~2019-01-10 | XMS | Encounter Summary ---
Demographics + + + | Address | [address] [address] | | | [place] [address] | + + + | Home Phone | | + + + | Preferred Language | Unknown | + + + | Marital Status | | + + + | Sabianist Affiliation | 1009 | + + + | Race | Unknown | + + + | Ethnic Group | Unknown | + + + Author + + + | Author | [facility] (Historical as of | | | 11-02-18) | + + + | Organization | [facility] (Historical as of | | | [...] Team Providers + +------+ + | Care Heating Element Builder Name | Role | Phone | + +------+ + | Tu Hansen MD | PCP | | + +------+ + Encounter Details +--------+ + + + + | Date | Type | Department | Care Team | Description | +--------+ + + + + | 10/24/ | Orders Only | [facility] | [place], | | | 2019 | | [facility] | [facility] | | | | | MEDICINE [facility] | | | | | | PAIN [address] | | | | | | [place] | | | | | | [address] | | | | | | [phone] | | | +--------+ + + + [...]
--- OUTSIDE RECORDS SUMMARY | ~2019-01-10 | XMS | Encounter Summary ---
Demographics + + + | Address | [address] [address] | | | [place] [address] | + + + | Home Phone | | + + + | Preferred Language | Unknown | + + + | Marital Status | | + + + | Buddhist Affiliation | 1009 | + + + | Race | Unknown | + + + | Ethnic Group | Unknown | + + + Author + + + | Author | [facility] (Historical as of | | | 11-02-18) | + + + | Organization | [facility] (Historical as of | | | [...] Team Providers + +------+ + | Care Lift Truck Mechanic Name | Role | Phone | + +------+ + | Tu Hansen MD | PCP | | + +------+ + Encounter Details +--------+ + + + + | Date | Type | Department | Care Team | Description | +--------+ + + + + | 10/24/ | Orders Only | [facility] | [place], | | | 2019 | | [facility] | [facility] | | | | | MEDICINE LIZZY | | | | | | PA[address] | | | | | | [place] | | | | | | [phone] | | | | | | [phone] | | | +--------+ + + + [...]
--- OUTSIDE RECORDS SUMMARY | ~2019-01-10 | XMS | Encounter Summary ---
Demographics + + + | Address | [address] [address] | | | [place] [address] | + + + | Home Phone | | + + + | Preferred Language | Unknown | + + + | Marital Status | | + + + | Baptist Affiliation | 1009 | + + + | Race | Unknown | + + + | Ethnic Group | Unknown | + + + Author + + + | Author | [facility] (Historical as of | | | 11-02-18) | + + + | Organization | [facility] (Historical as of | | | [...] Team Providers + +------+ + | Care House Painter Name | Role | Phone | + +------+ + | Tu Hansen MD | PCP | | + +------+ + Reason for Visit + + + | Reason | Comments | + + + | Referral | outgoing | + + + Encounter Details +--------+ + + + + | Date | Type | Department | Care Team | Description | +--------+ + + + + | 10/16/ | Telephone | [facility] | Tu Lugo DO | Referral (outgoing) | | 2019 | | [facility] | [address] | | | | | [address] | [place], [place] | | | | | [place], [place] | [address] | | | | | [address] | | | | | | [phone] | | | +--------+ + + + [...]
--- OUTSIDE RECORDS SUMMARY | ~2019-01-10 | XMS | Encounter Summary ---
Demographics + + + | Address | [address] [address] | | | [place] [address] | + + + | Home Phone | | + + + | Preferred Language | Unknown | + + + | Marital Status | | + + + | Jainism Affiliation | 1009 | + + + | Race | Unknown | + + + | Ethnic Group | Unknown | + + + Author + + + | Author | [facility] (Historical as of | | | 11-02-18) | + + + | Organization | [facility] (Historical as of | | | [...] Team Providers + +------+ + | Care Management Sme Name | Role | Phone | + [...] + + | 10/16/ | Telephone | [facility] | Tu Lugo DO | Referral (outgoing) | | 2019 | | [facility] | [address] | | | | | [address] | [place], [place] | | | | | [place], [place] | [address] | | | | | [address] | | | | | | [phone] | | | +--------+ + + + [...]
[~2019-01-10 11:12] MED LIST changes: +ALBUTEROL2.5 MG/3 M INH; +DOXYCYCLINE HY100 MG PO; +IPRAT-ALBUT 0.5-3 ML INH; +KEFLEX500 MG PO; +PREDNISONE50 MG PO
--- OUTSIDE RECORDS SUMMARY | 2019-01-10 11:16 | XMS ---
PreManage Notification: ISABELLE ALEMAN Security Grounds Keeper Events No recent Security Events currently on file CRITERIA MET - [facility] - Has Care Guidelines - PDMP CARE PROVIDERS JOEL Hernandez Internal Medicine: Infectious Disease 02/04/2018-Current PHONE: Unknown KATELYNN AGUAYO [facility] 02/04/2018-Current PHONE: Unknown DORENE JARAMILLO Internal Medicine 02/04/2018-Current PHONE: Unknown Susan Alicea Paint Department Supervisor/Dance Historian 03/19/2017-Current PHONE: [phone] Susan Alicea Primary Care 03/19/2017-Current PHONE: [phone] BLU POTTER Primary Care Current PHONE: [phone] Mihir has no Care Guidelines for this patient. Care History Medical/Surgical 02/04/2018 [facility] - PATIENT DID NOT ESTABLISH CARE WITH DR JARAMILLO IN AUGUST DUE TO DISCREPANCIES WITH PATIENT AND PROVIDER. - CHW HAS CONTACTED MURTAZA MAURO TO SEE IF ANOTHER PROVIDER IN THE OFFICE WILL REVIEW PATIENT TO ESTABLISH CARE. - Patient is currently established with [facility]. If patient is seen in the ED during business hours. Please contact CHWs at [facility]. Care Recommendation: This patient has had 5 or more Emergency Department visits in the last 12 months.\T\nbsp; Patient requires education on the scope and purpose of the ED as an acute care provider not a Primary Care Provider and should not be utilized for chronic conditions.\T\nbsp; These are guidelines and the provider should exercise clinical judgment when providing care. E.D. VISIT COUNT (12 MO.) [address] [facility] TOTAL 3 NOTE: Visits indicate total known visits. ED/UCC VISIT TRACKING (12 MO.) 01/10/2019 11:13 [facility] [place] TYPE: Emergency COMPLAINT: - RASH, EXTREMITY PAIN NON INJURY 02/04/2018 16:32 [facility] [place] TYPE: Emergency COMPLAINT: - COUGHING BLOOD DIAGNOSES: - Other care home (current) drug therapy - Allergy status to ot drug/meds/biol subst status - 1 Type 2 diabetes mellitus without complications - Hemoptysis - Allergy status to penicillin - Cough - Personal history of nicotine dependence - Allergy status to other antibiotic agents status - Acute bronchitis, unspecified 02/02/2018 16:[address] [facility] [place] TYPE: Emergency COMPLAINT: - DIFFICULTY BREATHING DIAGNOSES: - Acute upper respiratory infection, unspecified - Other care home (current) drug therapy - Allergy status to penicillin - Personal history of malignant neoplasm of liver - 1 Type 2 diabetes mellitus without complications - correction (current) use of insulin - Shortness of breath - correction (current) use of opiate analgesic - Personal history of nicotine dependence - Allergy status to other antibiotic agents status INPATIENT VISIT TRACKING (12 MO.) No inpatient visits to display in this time frame [email or web address]
== END 2019-01-10 11:34 | disposition home or self-care (01) ==
LOC: ED 11:12
DX: R21 Rash and other nonspecific skin eruption (principal)

== ENCOUNTER 2022-03-02 07:35 | Emergency (ER) | payer MEDICARE, OTHER ==
[~2022-03-02] VITALS: Ht 180.3 cm; Wt 82.5 kg
[2022-03-02] MEDS ORDERED: METFORMIN HCL500 M1 PO (07:52)
[2022-03-02] MEDS ORDERED: TAMSULOSIN HCL0.4 MG PO (07:52)
[2022-03-02] MEDS ORDERED: PIOGLITAZONE HC15 MG PO (07:53)
[2022-03-02] MEDS ORDERED: ROSUVASTATIN CA10 MG PO (07:53)
[2022-03-02] MEDS ORDERED: ZITHROMAX250 MG PO (09:11)
[2022-03-02] MEDS ORDERED: PREDNISONE20 MG PO (09:11)
== END 2022-03-02 09:43 | disposition home or self-care (01) ==
LOC: ED 07:35
DX: J10.1 Influenza due to other identified influenza virus with other respiratory manifestations (principal); J44.1 Chronic obstructive pulmonary disease with (acute) exacerbation; E11.9 Type 2 diabetes mellitus without complications; Z20.822 Contact with and (suspected) exposure to COVID-19; Z87.891 Personal history of nicotine dependence; Z88.0 Allergy status to penicillin; Z88.1 Allergy status to other antibiotic agents; Z88.6 Allergy status to analgesic agent; Z88.8 Allergy status to other drugs, medicaments and biological substances; Z79.899 Other long term (current) drug therapy; Z79.84 Long term (current) use of oral hypoglycemic drugs
CPT/HCPCS: 71101; 87502; 94640; 99284-25; C9803; J7512; U0003

== ENCOUNTER 2022-03-10 13:32 | Emergency (ER) | payer MEDICARE, OTHER ==
[~2022-03-10] VITALS: Ht 180.3 cm; Wt 82.5 kg
[~2022-03-10 13:32] MED LIST changes: +METFORMIN HCL500 M1 PO; +PIOGLITAZONE HC15 MG PO; +ROSUVASTATIN CA10 MG PO; +TAMSULOSIN HCL0.4 MG PO
--- OUTSIDE RECORDS SUMMARY | 2022-03-10 13:38 | XMS ---
PreManage Notification: ISABELLE ALEMAN Security Coordinator Of Genetic Services Events No recent Security Events currently on file CRITERIA MET - [facility] - 2 Visits in 30 Days CARE PROVIDERS JOEL Hernandez Internal Medicine: Infectious Disease 02/04/2018-Current PHONE: [phone] KATELYNN AGUAYO Family [facility] 02/04/2018-Current PHONE: Unknown ARIE POTTER [facility] Current PHONE: [phone] DORENE JARAMILLO Internal Medicine 02/04/2018-Current PHONE: Unknown Nina Azevedo Escrow Manager/Supervisor [employer] 09/16/2020-Current PHONE: [phone] Mihir has no Care Guidelines for this patient. Care History Medical/Surgical 02/04/2018 [facility] - PATIENT DID NOT ESTABLISH CARE WITH DR JARAMILLO IN AUGUST DUE TO DISCREPANCIES WITH PATIENT AND PROVIDER. - CHW HAS CONTACTED MURTAZA MAURO TO SEE IF ANOTHER PROVIDER IN THE OFFICE WILL REVIEW PATIENT TO ESTABLISH CARE. - Patient is currently established with [facility]. If patient is seen in the ED during business hours. Please contact CHWs at [facility]. Care Recommendation: This patient has [...] providing care. E.D. VISIT COUNT (12 MO.) 2 [facility] TOTAL 2 NOTE: Visits indicate total known visits. 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
[2022-03-10] MEDS ORDERED: PREDNISONE20 MG PO (16:08)
[2022-03-10] MEDS ORDERED: IPRAT-ALBUT 0.5-3 ML INH (16:08)
== END 2022-03-10 16:19 | disposition home or self-care (01) ==
LOC: ED 13:32
DX: J44.1 Chronic obstructive pulmonary disease with (acute) exacerbation (principal); E11.9 Type 2 diabetes mellitus without complications; Z87.891 Personal history of nicotine dependence; Z88.0 Allergy status to penicillin; Z88.8 Allergy status to other drugs, medicaments and biological substances; Z79.899 Other long term (current) drug therapy
CPT/HCPCS: 71046; 94640; 99283-25; J7512